=== PATIENT | female | born 1955 | race African-American/Black ===

== ENCOUNTER 2018-01-01 23:59 | Inpatient (IN) ==
[2018-01-02] MEDS ORDERED: ACETAMINOPHEN 325 MG TABLET PO PRN (03:07)
[2018-01-02] MEDS ORDERED: ONDANSETRON 4 MG/2 ML VIAL IV PRN (03:07)
[2018-01-02] MEDS ORDERED: NITROGLYCERIN SL 0.4 MG TABLET SL PRN (03:07)
[2018-01-02] MEDS: LISINOPRIL/HCTZ 10-12.5 MG TABLET PO SCH ×2 (03:36→09:33)
[2018-01-02 03:46] LABS: Troponin I Only < 0.015 NG/ML (0.00-0.045)
[2018-01-02 04:10] LABS: Risk Ratio 6.03; VLDL CHOLESTEROL 31.2 MG/DL
[2018-01-02] MEDS: guaiFENesin 200 MG/10 ML UDCUP PO PRN ×4 (06:17→20:16)
[2018-01-02] MEDS: hydrALAZINE 20 MG/1 ML VIAL IV PRN ×2 (09:17→20:16)
[2018-01-02] MEDS: ASPIRIN EC 81 MG TABLET PO SCH (09:33)
[2018-01-02] MEDS: PANTOPRAZOLE 40 MG TABLET PO SCH (09:33)
[2018-01-02] MEDS: DOCUSATE SODIUM 100 MG CAPSULE PO SCH ×2 (09:34→20:14)
[2018-01-02] MEDS: ALBUTEROL/IPRATROPIUM 3 ML NEB RESP TX SCH ×4 (11:31→23:58)
[2018-01-02] MEDS: methylPREDNISolone SOD SUC 40 MG/1 ML VIAL IV SCH (15:55)
[2018-01-02] MEDS: LEVOFLOXACIN INJ 750 MG in PREMIX 1 EACH IV SCH (15:57)
[2018-01-02] MEDS: BENZONATATE 100 MG CAPSULE PO PRN ×2 (16:05→20:16)
[2018-01-02] MEDS: ENOXAPARIN 40 MG/0.4 ML SYRINGE SUBCUT SCH (16:07)
[2018-01-02] MEDS: MORPHINE 4 MG/1 ML VIAL IV PRN (22:07)
[2018-01-03] MEDS: MORPHINE 4 MG/1 ML VIAL IV PRN ×3 (03:20→20:21)
[2018-01-03] MEDS: ALBUTEROL/IPRATROPIUM 3 ML NEB RESP TX SCH ×5 (03:25→21:55)
[2018-01-03] MEDS: methylPREDNISolone SOD SUC 40 MG/1 ML VIAL IV SCH ×2 (05:10→20:21)
[2018-01-03 05:17] LABS: Basophils % 0.1 % (0.0-0.8); Hematocrit 40.8 VOL% (35.7-47.0); Hemoglobin 12.3 GM/DL (12.0-16.0); Immature Granulocytes % 0.5 %; Immature Granulocytes Absolute 0.05 #; Lymphocytes # 0.9 10*3/uL (1.4-4.0); Lymphocytes % 9.5 % (21.3-54.2); Mean Corpuscular HGB Conc 30.1 GM/DL (32-36); Mean Corpuscular Hemoglobin 24 PG (27-34); Monocytes # 0.5 10*3/uL (0.11-0.8); Monocytes % 5.3 % (1.7-12.7); Neutrophils # 8.1 10*3/uL (1.4-7.4); Neutrophils % 84.6 % (38.7-73.9); Platelet Count 143 T/CUMM (130-400); Red Cell Distribution Width 18.4 % (9.3-17.3); White Blood Count 9.6 T/CUMM (4-12)
[2018-01-03 05:45] LABS: Calcium 8.8 MG/DL (8.5-10.1); Hypochromasia 1+; Microcytosis 1+; Osmolality,Calculated 282.4 MOS/KG (273-304); Potassium 3.9 MMOL/L (3.5-5.1)
[2018-01-03 05:48] LABS: Ovalocytes Slight
[2018-01-03] MEDS ORDERED: hydrALAZINE 10 MG TABLET PO SCH (09:00)
[2018-01-03] MEDS ORDERED: amLODIPine 5 MG TABLET PO SCH (09:00)
[2018-01-03] MEDS: LISINOPRIL/HCTZ 10-12.5 MG TABLET PO SCH (11:03)
[2018-01-03] MEDS: BENZONATATE 100 MG CAPSULE PO PRN (11:03)
[2018-01-03] MEDS: PANTOPRAZOLE 40 MG TABLET PO SCH (11:03)
[2018-01-03] MEDS: ASPIRIN EC 81 MG TABLET PO SCH (11:03)
[2018-01-03] MEDS: ENOXAPARIN 40 MG/0.4 ML SYRINGE SUBCUT SCH (11:04)
[2018-01-03] MEDS: DOCUSATE SODIUM 100 MG CAPSULE PO SCH ×2 (11:04→20:25)
[2018-01-03] MEDS: amLODIPine 5 MG TABLET PO SCH (11:04)
[2018-01-03] MEDS: guaiFENesin 200 MG/10 ML UDCUP PO PRN (11:06)
[2018-01-03] MEDS: LEVOFLOXACIN INJ 750 MG in PREMIX 1 EACH IV SCH (11:27)
[2018-01-04] MEDS: ALBUTEROL/IPRATROPIUM 3 ML NEB RESP TX SCH ×4 (00:05→13:49)
[2018-01-04] MEDS: guaiFENesin 200 MG/10 ML UDCUP PO PRN (01:55)
[2018-01-04 05:38] LABS: Basophils % 0.1 % (0.0-0.8); Hematocrit 40.4 VOL% (35.7-47.0); Hemoglobin 12.5 GM/DL (12.0-16.0); Immature Granulocytes % 0.8 %; Immature Granulocytes Absolute 0.12 #; Lymphocytes % 6.2 % (21.3-54.2); Mean Corpuscular HGB Conc 30.9 GM/DL (32-36); Mean Corpuscular Hemoglobin 24 PG (27-34); Monocytes # 0.5 10*3/uL (0.11-0.8); Monocytes % 3.5 % (1.7-12.7); Neutrophils # 13.8 10*3/uL (1.4-7.4); Neutrophils % 89.4 % (38.7-73.9); Platelet Count 131 T/CUMM (130-400); Red Blood Count 5.18 MC/CUMM (3.8-5.5); Red Cell Distribution Width 19.2 % (9.3-17.3); White Blood Count 15.4 T/CUMM (4-12)
[2018-01-04 06:04] LABS: Calcium 8.6 MG/DL (8.5-10.1); Osmolality,Calculated 281.7 MOS/KG (273-304); Potassium 4.3 MMOL/L (3.5-5.1)
[2018-01-04] MEDS: hydrALAZINE 20 MG/1 ML VIAL IV PRN (06:08)
[2018-01-04 08:11] VITALS: BP 149/75
[2018-01-04] MEDS ORDERED: amLODIPine 5 MG TABLET PO ONE (09:15)
[2018-01-04] MEDS: DOCUSATE SODIUM 100 MG CAPSULE PO SCH (11:05)
[2018-01-04] MEDS: amLODIPine 5 MG TABLET PO SCH (11:05)
[2018-01-04] MEDS: methylPREDNISolone SOD SUC 40 MG/1 ML VIAL IV SCH (11:05)
[2018-01-04] MEDS: LISINOPRIL/HCTZ 10-12.5 MG TABLET PO SCH (11:06)
[2018-01-04] MEDS: ENOXAPARIN 40 MG/0.4 ML SYRINGE SUBCUT SCH (11:06)
[2018-01-04] MEDS: LEVOFLOXACIN INJ 750 MG in PREMIX 1 EACH IV SCH (11:06)
[2018-01-04] MEDS: ASPIRIN EC 81 MG TABLET PO SCH (11:08)
[2018-01-04] MEDS: PANTOPRAZOLE 40 MG TABLET PO SCH (11:09)
[2018-01-04] MEDS: MORPHINE 4 MG/1 ML VIAL IV PRN (11:16)
[2018-01-05] MEDS ORDERED: amLODIPine 10 MG TABLET PO SCH (09:00)
== END 2018-01-04 12:43 | disposition home or self-care (01) | DRG 305 ==
LOC: SUATTDRO 01-02 01:42 → N.TELES 01-02 01:42
PROVIDERS: ATTEND Internal Medicine Cardiovascular Disease

== ENCOUNTER 2019-01-10 23:13 | Observation (INO) ==
[2019-01-11] MEDS ORDERED: diphenhydrAMINE CAP 25 MG CAPSULE PO PRN (00:37)
[2019-01-11] MEDS ORDERED: NICOTINE 21 MG/24 HR PATCH TRANSDERM PRN (00:37)
[2019-01-11] MEDS ORDERED: KETOROLAC 15 MG/1 ML VIAL IV ONE (00:37)
[2019-01-11] MEDS ORDERED: methylPREDNISolone SOD SUC 125 MG/2 ML VIAL IV ONE (00:37)
[2019-01-11] MEDS ORDERED: ZALEPLON 5 MG CAPSULE PO PRN (00:37)
[2019-01-11] MEDS ORDERED: ACETAMINOPHEN 325 MG TABLET PO PRN (00:37)
[2019-01-11] MEDS ORDERED: ONDANSETRON 4 MG/2 ML VIAL IV PRN (00:37)
[2019-01-11] MEDS ORDERED: guaiFENesin/DM ER 600-30 MG TABLET PO PRN (00:37)
[2019-01-11] MEDS: ALBUTEROL/IPRATROPIUM 3 ML NEB RESP TX SCH ×4 (00:51→19:05)
[2019-01-11] MEDS: LEVOFLOXACIN INJ 750 MG in PREMIX 1 EACH IV SCH (01:07)
[2019-01-11 02:09] LABS: Basophils % 0.3 % (0.0-0.8); Eosinophils # 0.1 10*3/uL (0.0-0.87); Eosinophils % 0.7 % (0.00-10.9); Hematocrit 37.3 VOL% (35.7-47.0); Immature Granulocytes % 0.5 %; Immature Granulocytes Absolute 0.05 #; Lymphocytes # 1.4 10*3/uL (1.4-4.0); Lymphocytes % 12.5 % (21.3-54.2); Mean Corpuscular HGB Conc 28.7 GM/DL (32-36); Mean Corpuscular Volume 78.5 FL (87-102); Monocytes % 9.5 % (1.7-12.7); Neutrophils % 76.5 % (38.7-73.9); Red Blood Count 4.75 MC/CUMM (3.8-5.5); Red Cell Distribution Width 18.5 % (9.3-17.3)
[2019-01-11 02:12] LABS: Albumin 3.2 G/DL (3.4-5.0); Bilirubin,Total 0.5 MG/DL (0.2-1.0); Calcium 8.4 MG/DL (8.5-10.1); Osmolality,Calculated 275.5 MOS/KG (273-304); Risk Ratio 4.53; Thyroid Stimulating Hormone 1.34 uIU/ml (0.358-3.74); Total Protein 7.1 G/DL (6.4-8.3); VLDL CHOLESTEROL 17.4 MG/DL
[2019-01-11 02:19] LABS: Hemoglobin 10.7 GM/DL (12.0-16.0)
[2019-01-11 04:17] LABS: Apearance,Urine CLEAR (Clear); Bacteria,Urine Occasional /HPF (Few); Bilirubin,Urine Negative (Negative); Blood, Urine Moderate mg/dL (Negative); Glucose,Urine (UA) Negative (Negative); Hyaline Casts,Urine 1 /LPF (0-3); Ketones,Urine Negative (Negative); Mucus,Urine Occasional /LPF (Occasional); Nitrite,Urine Negative (Negative); Protein,Urine Negative; RBC,Urine 8 /HPF (0-4); Squamous Epithelial Cell,Urine Occasional /HPF (0-10); Urine Color Yellow (Yellow); Urine Specific Gravity 1.009 (1.001-1.035); Urine Urobilinogen < 2.0 EU/DL (0.2-1.0); WBC,Urine 1 /HPF (0-6)
[2019-01-11 04:56] LABS: Platelet Count 235 T/CUMM (130-400)
[2019-01-11 06:07] LABS: Hypochromasia 1+; Lymphocytes 6 % (20-55); Platelet Estimate Adequate; Segmented Neutrophils 88 % (50-85); Total Cells Counted 100
[2019-01-11 06:08] LABS: Microcytosis Slight
[2019-01-11] MEDS: ASPIRIN EC 81 MG TABLET PO SCH (08:10)
[2019-01-11] MEDS: amLODIPine 10 MG TABLET PO SCH (08:10)
[2019-01-11] MEDS: LISINOPRIL/HCTZ 10-12.5 MG TABLET PO SCH (08:10)
[2019-01-11] MEDS: PANTOPRAZOLE 40 MG TABLET PO SCH (08:11)
[2019-01-11] MEDS: MORPHINE 4 MG/1 ML VIAL IV PRN ×2 (16:38→20:59)
[2019-01-12] MEDS: ALBUTEROL/IPRATROPIUM 3 ML NEB RESP TX SCH ×4 (00:33→20:21)
[2019-01-12] MEDS: LEVOFLOXACIN INJ 750 MG in PREMIX 1 EACH IV SCH ×2 (00:57→21:30)
[2019-01-12] MEDS: MORPHINE 4 MG/1 ML VIAL IV PRN (05:07)
[2019-01-12] MEDS: KETOROLAC 15 MG/1 ML VIAL IV PRN (08:42)
[2019-01-12] MEDS: LISINOPRIL/HCTZ 10-12.5 MG TABLET PO SCH (08:45)
[2019-01-12] MEDS: ASPIRIN EC 81 MG TABLET PO SCH (08:45)
[2019-01-12] MEDS: PANTOPRAZOLE 40 MG TABLET PO SCH (08:45)
[2019-01-12] MEDS: amLODIPine 10 MG TABLET PO SCH (08:45)
[2019-01-12] MEDS ORDERED: methylPREDNISolone SOD SUC 125 MG/2 ML VIAL IV ONE (09:40)
[2019-01-12] MEDS ORDERED: FUROSEMIDE 40 MG/4 ML VIAL IV ONE (11:42)
[2019-01-12] MEDS: methylPREDNISolone SOD SUC 40 MG/1 ML VIAL IV SCH (21:29)
[2019-01-13] MEDS: KETOROLAC 15 MG/1 ML VIAL IV PRN ×2 (00:06→14:09)
[2019-01-13] MEDS: ALBUTEROL/IPRATROPIUM 3 ML NEB RESP TX SCH ×4 (01:32→19:18)
[2019-01-13 03:12] LABS: Basophils % 0.1 % (0.0-0.8); Hemoglobin 10.9 GM/DL (12.0-16.0); Immature Granulocytes % 0.7 %; Immature Granulocytes Absolute 0.12 #; Lymphocytes # 0.6 10*3/uL (1.4-4.0); Lymphocytes % 3.5 % (21.3-54.2); Mean Corpuscular HGB Conc 28.8 GM/DL (32-36); Mean Corpuscular Volume 79.1 FL (87-102); Monocytes % 3.4 % (1.7-12.7); Neutrophils % 92.3 % (38.7-73.9); Platelet Count 178 T/CUMM (130-400); Red Blood Count 4.78 MC/CUMM (3.8-5.5); Red Cell Distribution Width 18.6 % (9.3-17.3); White Blood Count 16.4 T/CUMM (4-12)
[2019-01-13 03:29] LABS: Calcium 8.6 MG/DL (8.5-10.1); Osmolality,Calculated 289.1 MOS/KG (273-304)
[2019-01-13 03:40] LABS: Hematocrit 37.6 VOL% (35.7-47.0)
[2019-01-13 03:43] LABS: Lymphocytes 3 % (20-55); Segmented Neutrophils 96 % (50-85); Total Cells Counted 100
[2019-01-13 03:45] LABS: Anisocytosis 1+; Platelet Estimate Adequate
[2019-01-13] MEDS: ASPIRIN EC 81 MG TABLET PO SCH (08:21)
[2019-01-13] MEDS: LISINOPRIL/HCTZ 10-12.5 MG TABLET PO SCH (08:21)
[2019-01-13] MEDS: amLODIPine 10 MG TABLET PO SCH (08:22)
[2019-01-13] MEDS: PANTOPRAZOLE 40 MG TABLET PO SCH (08:22)
[2019-01-13] MEDS: methylPREDNISolone SOD SUC 40 MG/1 ML VIAL IV SCH ×2 (08:23→20:49)
[2019-01-13] MEDS: BENZONATATE 100 MG CAPSULE PO PRN ×2 (09:49→20:50)
[2019-01-13] MEDS: LEVOFLOXACIN INJ 750 MG in PREMIX 1 EACH IV SCH (20:49)
[2019-01-14] MEDS: ALBUTEROL/IPRATROPIUM 3 ML NEB RESP TX SCH ×3 (00:23→12:22)
[2019-01-14] MEDS: KETOROLAC 15 MG/1 ML VIAL IV PRN (02:10)
[2019-01-14 03:57] LABS: Calcium 8.3 MG/DL (8.5-10.1); Osmolality,Calculated 289.3 MOS/KG (273-304)
[2019-01-14] MEDS ORDERED: LOSARTAN/HCTZ 50-12.5 MG TABLET PO SCH (09:00)
[2019-01-14] MEDS: ASPIRIN EC 81 MG TABLET PO SCH (09:16)
[2019-01-14] MEDS: amLODIPine 10 MG TABLET PO SCH (09:16)
[2019-01-14] MEDS: PANTOPRAZOLE 40 MG TABLET PO SCH (09:16)
[2019-01-14] MEDS: methylPREDNISolone SOD SUC 40 MG/1 ML VIAL IV SCH (09:16)
[2019-01-14 15:16] VITALS: BP 193/90
== END 2019-01-14 17:24 | disposition home or self-care (01) ==
LOC: N.TELEN → SUATTDRO 23:13 → N.TELEN 23:13 → SUATTDRO 01-11 00:37 → EDSTATUS 01-13 08:24 → N.TELENOUT 01-13 08:29
PROVIDERS: ADMIT Internal Medicine; ATTEND Emergency Medicine